=== PATIENT | female | born 1955 | race Caucasian/White ===

== ENCOUNTER → 2017-05-15 08:28 | Outpatient (CLI) | payer BC ==
[~2017-05-15 08:28] MED LIST: LEVAQUIN750 MG PO; PROBIOTIC250 MG PO; XARELTO20 MG PO; [UNRECOGNIZED DRUG - OTHER]
[2017-05-16 01:23] VITALS: BMI 30.3
== END | disposition home or self-care (01) ==
LOC: D.CT 08:28
DX: I26.99 Other pulmonary embolism without acute cor pulmonale (principal)

== ENCOUNTER 2017-05-15 09:35 | Inpatient (IN) | payer BC ==
[~2017-05-15] VITALS: Ht 175.3 cm; Wt 93.2 kg
--- NOTE | ~2017-05-15 | EC ---
PATIENT:IRINA CAMPOS DATE OF SERVICE: 05/15/17 SEX: F MEDICAL RECORD: [id number] DATE OF : [birth year] LOCATION:[facility] AGE OF PATIENT: 62 ADMISSION DATE: 05/15/17 REFERRING PHYSICIAN: INTERPRETING PHYSICIAN: ANÍBAL CRUZ MD ECHOCARDIOGRAM REPORT ECHO CHARGES 4 ECHO COMPLETE CLINICAL DIAGNOSIS: PE ECHOCARDIOGRAPHIC MEASUREMENTS (adult normal given) AC root (d.<3.7cm) 3.2 cm LV Septum d (<1.2 cm> 1.4 cm Valve Excursion 1.4 cm LV Septum (systole) 2.0 cm Left Atria (s.<4.0cm> 2.8 cm LVPW d(<1.2cm) 1.2 cm RV (d.<2.3cm) 2.0 cm LVPW (sytole) 2.0 cm LV diastole(<5.6CM) 4.4 cm MV E-F(>70mm/sec) cm LV systole 1.8 cm LVOT Diameter 1.7 cm MV exc.(>10mm) cm Est.ejection fraction (50-75%) % Pericardial Effusion N DOPPLER: LVIT cm/sec A 69.0 cm/sec E 59.0 cm/sec LA cm/sec RVSP 26.0 mmHg LVOT 117 cm/sec AOP1/2T m/s Asc. Ao 184 cm/sec RVOT 107 cm/sec RA cm/sec PA 103 cm/sec AV Gradient Peak 14.0 mmHg AV Mean 5.9 mmHg AV Area 1.6 cm MV Gradient Peak 2.5 mmHg MV Mean 1.2 mmHg MV Area cm COMMENTS: Dental Biller: Jelani BURGESSOE [employer] Employment Representative: 1 Dr. Cruz TAPE# PACS DATE OF SERVICE: 05/16/2017 DATE OF SERVICE: 05/16/2017 FINDINGS: 1. Left ventricular chamber size is within normal limits. Left ventricular systolic function is normal. Overall ejection fraction estimated at 65%. 2. Left atrium, right atrium and right ventricular chamber sizes are within normal limits. 3. Valvular structures have normal structure and motion. ECHOCARDIOGRAM REPORT [id number] IRINA CAMPOS 4. Doppler interrogation reveals no significant valvular insufficiency or stenosis and pulmonary systolic pressure is normal estimated at 26 mmHg. 5. No evidence of pericardial effusion or left ventricular thrombus. TRANSINT:[id number] Voice Confirmation ID: [id number] DOCUMENT ID: [id number] ANÍBAL CRUZ MD CC: [id number] DICTATION DATE: 05/17/17948 COMMISSIONING MANAGER: 05/17/17 1228 ADM IN [facility] [address] [id number]
[2017-05-15 12:01] LABS: BASOPHILS 0.2 % (0-2); EOSINOPHILS 1.6 % (0-7); HEMATOCRIT 39.7 % (36.0-48.0); HEMOGLOBIN 13.7 g/dL (12-16); IMMATURE GRANULOCYTES 0.6 % (0-5); LYMPHOCYTES 18.1 % (15-50); MCH 31.4 pg (26.0-34.0); MCHC 34.5 g/dL (31.0-37.0); MCV 91.1 fL (80.0-100.0); MEAN PLATELET VOLUME 10.7 fL (7.4-10.4); MONOCYTES 6.9 % (2-11); NEUTROPHILS 72.6 % (40-80); PLATELET COUNT 227 10x3/uL (130-400); RBC 4.36 10x6/uL (4.00-5.40); WBC 8.8 10x3/uL (4.8-10.8)
[2017-05-15 12:28] LABS: APTT 47.2 SECONDS (22.8-39.4); INR 1.91 (0.85-1.17); PROTIME 21.3 SECONDS (11.6-15.0)
[2017-05-15 12:29] LABS: ALKALINE PHOSPHATASE 79 U/L (46-116); ALT (SGPT) 28 U/L (10-68); BILIRUBIN - TOTAL 0.42 mg/dL (0.2-1.3); CALC OSMOLALITY 277 mosm/kg (275-300); CALCIUM 9.5 mg/dL (8.5-10.1); CHLORIDE - SERUM 105 mmol/L (98-107); CREATININE - SERUM 0.7 mg/dL (0.6-1.3); GLUCOSE 96 mg/dL (74-106); POTASSIUM - SERUM 3.8 mmol/L (3.5-5.1); PROTEIN - SERUM 6.9 g/dL (6.4-8.2); SODIUM 140 mmol/L (136-145); UREA NITROGEN 10 mg/dL (7-18); eGFR NON AFRICAN AMERICAN 90 mL/min (90-120)
[2017-05-15 12:39] LABS: CREATINE KINASE 36 UL (21-215); PRO BNP 134 pg/mL (0-125); TROPONIN-I < 0.017 ng/mL (0.000-0.060)
[2017-05-15 12:46] LABS: D-DIMER-QUANTITATIVE 6.9 ug/mLFEU (0.20-0.54)
[2017-05-15 22:06] VITALS: BP 147/79
[2017-05-16] MEDS ORDERED: LEVAQUIN750 MG PO (00:06)
[2017-05-16] MEDS ORDERED: PROBIOTIC250 MG PO (00:06)
[2017-05-16] MEDS ORDERED: [UNRECOGNIZED DRUG - OTHER] (00:08)
[2017-05-16 01:23] VITALS: BP 147/79; Ht 175.3 cm; Wt 93.2 kg
[2017-05-16 04:36] VITALS: BP 147/79
[2017-05-16 04:41] LABS: BASOPHILS 0.4 % (0-2); EOSINOPHILS 2.3 % (0-7); HEMATOCRIT 39.3 % (36.0-48.0); HEMOGLOBIN 13.1 g/dL (12-16); IMMATURE GRANULOCYTES 0.4 % (0-5); LYMPHOCYTES 27.5 % (15-50); MCH 30.4 pg (26.0-34.0); MCHC 33.3 g/dL (31.0-37.0); MCV 91.2 fL (80.0-100.0); MEAN PLATELET VOLUME 10.9 fL (7.4-10.4); MONOCYTES 7.7 % (2-11); NEUTROPHILS 61.7 % (40-80); PLATELET COUNT 238 10x3/uL (130-400); RBC 4.31 10x6/uL (4.00-5.40); RDW 13.3 % (11.5-14.5); WBC 7.4 10x3/uL (4.8-10.8)
[2017-05-16 04:57] LABS: ALBUMIN 2.7 g/dL (3.4-5.0); ALKALINE PHOSPHATASE 71 U/L (46-116); ALT (SGPT) 25 U/L (10-68); BILIRUBIN - TOTAL 0.44 mg/dL (0.2-1.3); CALC OSMOLALITY 279 mosm/kg (275-300); CALCIUM 9.4 mg/dL (8.5-10.1); CARBON DIOXIDE 26.5 mmol/L (21.0-32.0); CHLORIDE - SERUM 107 mmol/L (98-107); CREATININE - SERUM 0.7 mg/dL (0.6-1.3); GLUCOSE 100 mg/dL (74-106); PROTEIN - SERUM 6.5 g/dL (6.4-8.2); SODIUM 141 mmol/L (136-145); UREA NITROGEN 9 mg/dL (7-18); eGFR NON AFRICAN AMERICAN 90 mL/min (90-120)
[2017-05-16] MEDS ORDERED: XARELTO20 MG PO (05:25)
[2017-05-16 07:03] VITALS: BP 140/80
[2017-05-16 11:10] VITALS: BP 123/77
[2017-05-16 15:07] VITALS: BP 125/75
[2017-05-16 20:30] VITALS: BP 115/72
[2017-05-17 04:30] VITALS: BP 122/65
[2017-05-17 05:33] LABS: BASOPHILS 0.3 % (0-2); EOSINOPHILS 2.8 % (0-7); HEMATOCRIT 40.7 % (36.0-48.0); HEMOGLOBIN 13.3 g/dL (12-16); IMMATURE GRANULOCYTES 0.3 % (0-5); LYMPHOCYTES 27.7 % (15-50); MCH 30.2 pg (26.0-34.0); MCHC 32.7 g/dL (31.0-37.0); MCV 92.5 fL (80.0-100.0); MEAN PLATELET VOLUME 10.6 fL (7.4-10.4); MONOCYTES 8.5 % (2-11); NEUTROPHILS 60.4 % (40-80); PLATELET COUNT 267 10x3/uL (130-400); RDW 13.4 % (11.5-14.5); WBC 6.7 10x3/uL (4.8-10.8)
[2017-05-17 06:02] LABS: ALBUMIN 2.8 g/dL (3.4-5.0); ALKALINE PHOSPHATASE 79 U/L (46-116); ALT (SGPT) 19 U/L (10-68); CALC OSMOLALITY 277 mosm/kg (275-300); CALCIUM 9.4 mg/dL (8.5-10.1); CARBON DIOXIDE 26.1 mmol/L (21.0-32.0); CHLORIDE - SERUM 105 mmol/L (98-107); CREATININE - SERUM 0.7 mg/dL (0.6-1.3); GLUCOSE 95 mg/dL (74-106); POTASSIUM - SERUM 4.1 mmol/L (3.5-5.1); SODIUM 140 mmol/L (136-145); UREA NITROGEN 11 mg/dL (7-18); eGFR NON AFRICAN AMERICAN 90 mL/min (90-120)
[2017-05-17 09:23] VITALS: BP 134/80
[2017-05-17 11:43] VITALS: BP 135/77
[2017-05-17 16:00] VITALS: BP 128/76
[2017-05-17 20:00] VITALS: BP 125/78
[2017-05-18 04:00] VITALS: BP 123/78
[2017-05-18 05:17] LABS: BASOPHILS 0.1 % (0-2); EOSINOPHILS 2.6 % (0-7); HEMATOCRIT 40.9 % (36.0-48.0); HEMOGLOBIN 13.4 g/dL (12-16); IMMATURE GRANULOCYTES 0.4 % (0-5); MCH 30.2 pg (26.0-34.0); MCHC 32.8 g/dL (31.0-37.0); MCV 92.3 fL (80.0-100.0); MEAN PLATELET VOLUME 10.5 fL (7.4-10.4); MONOCYTES 8.5 % (2-11); NEUTROPHILS 64.4 % (40-80); PLATELET COUNT 296 10x3/uL (130-400); RBC 4.43 10x6/uL (4.00-5.40); RDW 13.2 % (11.5-14.5); WBC 7.2 10x3/uL (4.8-10.8)
[2017-05-18 05:38] LABS: ALBUMIN 2.9 g/dL (3.4-5.0); ANION GAP 13.3 mmol/L (8-16); BILIRUBIN - TOTAL 0.3 mg/dL (0.2-1.3); CALCIUM 9.6 mg/dL (8.5-10.1); CARBON DIOXIDE 25.6 mmol/L (21.0-32.0); POTASSIUM - SERUM 3.9 mmol/L (3.5-5.1); PROTEIN - SERUM 6.5 g/dL (6.4-8.2)
[2017-05-18 05:40] LABS: CREATININE - SERUM 0.9 mg/dL (0.6-1.3)
[2017-05-18 09:14] VITALS: BP 138/75
[2017-05-18 12:55] VITALS: BP 137/68
[2017-05-18] MEDS ORDERED: XARELTO20 MG PO (12:59)
== END 2017-05-18 15:00 | disposition home or self-care (01) | DRG 299 ==
LOC: D.ER 09:35 → D.MS 15:25 → D.SDCHOLD 15:25 → D.MS 18:40
PROVIDERS: Family Medicine; Nurse Practitioner Family
DX: I82.401 Acute embolism and thrombosis of unspecified deep veins of right lower extremity (principal); I26.99 Other pulmonary embolism without acute cor pulmonale; R50.9 Fever, unspecified; R16.0 Hepatomegaly, not elsewhere classified